=== PATIENT | male | born 1975 | race Hispanic/Latino ===

== ENCOUNTER 2022-06-04 22:28 | Emergency (ER) | payer OTHER, MEDICARE ==
[~2022-06-04] VITALS: Ht 180.3 cm; Wt 92.1 kg
[2022-06-05] MEDS ORDERED: AMOX500C2 PO (00:33)
[2022-06-05 00:34] VITALS: BP 131/80
== END 2022-06-05 01:03 | disposition home or self-care (01) ==
LOC: EDH 22:28
DX: H66.92 Otitis media, unspecified, left ear (principal); E78.00 Pure hypercholesterolemia, unspecified; Z98.890 Other specified postprocedural states; Z90.49 Acquired absence of other specified parts of digestive tract

== ENCOUNTER → 2022-09-01 | Outpatient (CLI) | payer OTHER, MEDICARE ==
[~2022-09-01] MED LIST: AMOX500C2 PO
== END | disposition home or self-care (01) ==
LOC: SHCH 11:17
PROVIDERS: ATTEND Internal Medicine Cardiovascular Disease
DX: R07.9 Chest pain, unspecified (principal)
CPT/HCPCS: 93306

== ENCOUNTER → 2022-09-08 | Outpatient (CLI) | payer OTHER, MEDICARE ==
[~2022-09-08] MED LIST changes: +REGADENOSON 0.4 MG/5 ML PF SYG IVP ONE
== END | disposition home or self-care (01) ==
LOC: SHCH 10:00
PROVIDERS: ATTEND Internal Medicine Cardiovascular Disease
DX: R07.9 Chest pain, unspecified (principal)
CPT/HCPCS: 78452; 96374; 93017; J2785; A9500 ×2

== ENCOUNTER → 2022-09-16 | Outpatient (CLI) | payer OTHER, MEDICARE ==
[~2022-09-16] MED LIST changes: -REGADENOSON 0.4 MG/5 ML PF SYG IVP ONE
[2022-09-16 16:50] LABS: BILIRUBIN,DIRECT 0.1 mg/dL (0.0-0.3); TOTAL PROTEIN, SERUM 7.4 g/dL (6.0-8.3)
== END | disposition home or self-care (01) ==
LOC: LAB 08:37
PROVIDERS: ATTEND Internal Medicine Cardiovascular Disease
DX: R07.9 Chest pain, unspecified (principal)
CPT/HCPCS: 36415; 80061; 80076

== ENCOUNTER 2023-02-25 11:50 | Emergency (ER) | payer OTHER, MEDICARE ==
[~2023-02-25] VITALS: Ht 180.3 cm; Wt 90.7 kg
[2023-02-25] MEDS ORDERED: LIDOCAINE HCL 1% 20 ML VIAL INJ SCH (13:00)
[2023-02-25] MEDS ORDERED: DIPH,PERTUSS(ACELL),TET VAC/PF 0.5 ML VIAL IM ONE (13:00)
[2023-02-25] MEDS ORDERED: MUPI22OI2 TP (14:47)
[2023-02-25 14:58] VITALS: BP 131/78; PULSE 94; RESP 16; O2SAT 98
== END 2023-02-25 15:05 | disposition home or self-care (01) ==
LOC: EDH 11:50
DX: S61.411A Laceration without foreign body of right hand, initial encounter (principal); S61.214A Laceration without foreign body of right ring finger without damage to nail, initial encounter; S80.211A Abrasion, right knee, initial encounter; S09.90XA Unspecified injury of head, initial encounter; W18.39XA Other fall on same level, initial encounter; Y93.89 Activity, other specified; Y92.89 Other specified places as the place of occurrence of the external cause; Y99.8 Other external cause status
CPT/HCPCS: 12001; 70450; 73130; 90471; 90715

== ENCOUNTER 2023-03-09 02:12 | Emergency (ER) | payer OTHER, MEDICARE ==
[~2023-03-09] VITALS: Ht 180.3 cm; Wt 90.7 kg
[~2023-03-09 02:12] MED LIST changes: +MUPI22OI2 TP
[2023-03-09 02:13] VITALS: BP 137/84; PULSE 72; RESP 14; O2SAT 100
== END 2023-03-09 03:01 | disposition home or self-care (01) ==
LOC: EDH 02:12
DX: S61.411D Laceration without foreign body of right hand, subsequent encounter (principal); E78.00 Pure hypercholesterolemia, unspecified; Z90.49 Acquired absence of other specified parts of digestive tract; X58.XXXD Exposure to other specified factors, subsequent encounter
CPT/HCPCS: 99281

== ENCOUNTER → 2025-02-08 | Outpatient (CLI) | payer OTHER, MEDICARE ==
--- NOTE | 2025-02-09 08:16 | HMCIMG ---
CR CHEST, 2 VIEW Clinical Details: Patient with history of COPD. Technique: Posteroanterior and lateral chest radiographs were obtained. Findings: Lungs: There is basal atelectasis noted in the right lung. The remainder of the lungs show no infiltrate or other acute findings. Pleural Spaces: No pleural effusion or pneumothorax is observed. Mediastinum: The cardiomediastinal silhouette is within normal limits. Bones: Age-appropriate degenerative thoracic spondylosis is present. No acute osseous abnormality is identified. Diaphragm: The right hemidiaphragm is elevated. IMPRESSION: 1. Right basal atelectasis with elevated right hemidiaphragm. 2. No acute cardiopulmonary findings. /[place]
== END | disposition home or self-care (01) ==
LOC: RAH 09:38
DX: J44.9 Chronic obstructive pulmonary disease, unspecified (principal); J98.11 Atelectasis; M47.814 Spondylosis without myelopathy or radiculopathy, thoracic region
CPT/HCPCS: 71046